=== PATIENT | female | born 1980 ===

== ENCOUNTER 2022-02-20 16:30 | Emergency (ER) | payer SELFPAY ==
[2022-02-20 16:39] VITALS: BP 127/80; PULSE 87; RESP 18; TEMP 36.7; O2SAT 100; BMI 24.2
--- NOTE | 2022-02-20 17:09 | ED.ARRPALP ---
HPI - Arrhythmia/Palpitations General Chief Complaint: Arrhythmia/Palpitations Stated Complaint: SVT Time Seen by Provider: 02/20/22 16:45 Source: patient and EMS Mode of arrival: EMS History of Present Illness HPI narrative: 41F smoker with history of SVT presents by EMS for evaluation of a rapid heart rate, chest pain and shortness of breath. She states she had been in her normal state of health and developed symptoms shortly prior to her calling EMS. On their arrival they found her to be in SVT with a rate of over 200. She had an IV placed and Cardizem was administered and patient had converted to a sinus rhythm in the 80s by her arrival and was completely asymptomatic. She denies any ongoing chest pain or shortness of breath. She denies nausea, vomiting or diarrhea. She denies any dizziness, weakness or lightheadedness. Related Data Allergies Allergy/AdvReac Type Severity Reaction Status Date / Time No Known Drug Allergies Allergy Verified 02/20/22 16:39 Review of Systems Review of Systems Narrative: GENERAL: See HPI HEENT: Denies sinus pain, ear pain, sore throat, difficulty swallowing, dizziness. RESPIRATORY: Denies dyspnea, cough, wheezing, hemoptysis, sputum. CARDIOVASCULAR: See HPI GASTROINTESTINAL: Denies nausea, vomiting, abdominal pain, diarrhea, constipation, melena. : Denies dysuria, frequency, incontinence, hematuria, urinary retention. MUSCULOSKELETAL: denies weakness, joint pain, or bony pain SKIN: Denies rash, skin lesions, or other NEUROLOGIC: Denies weakness, headache, numbness, change in speech, confusion, seizures, incoordination. PSYCHIATRIC: No concerning psychosocial issues. 12 point review of systems is negative except for those stated above Patient History Social History Smoking Status: Current every day smoker Smoking Status: Current every day smoker alcohol intake frequency: holidays/special occasions only Substance Use Type: methamphetamine Exam Narrative Exam Narrative: GENERAL: [41] year old patient appears stated age. Well-developed patient, in mild distress. HEAD: Atraumatic. Normocephalic. EYES: Pupils equal round and reactive. Extraocular motions intact. No scleral icterus. No injection or drainage. ENT: Nose without bleeding, purulent drainage. Throat without erythema, tonsillar hypertrophy or exudate. Airway patent. NECK: Trachea midline. Non tender CARDIOVASCULAR: Regular rate and rhythm without murmurs, gallops, or rubs. RESPIRATORY: Clear to auscultation. Breath sounds equal bilaterally. No wheezes, rales, or rhonchi. GASTROINTESTINAL: Abdomen soft, non-tender, nondistended. EXTREMITIES: No edema or joint tenderness. BACK: Nontender without deformity or crepitance. No flank tenderness. NEURO: AOx3. SKIN: No rash or erythema of visible areas Initial Vital Signs Initial Vital Signs: Vital Signs Temperature 98.0 F 02/20/22 16:39 Pulse Rate 87 02/20/22 16:39 Respiratory Rate 18 02/20/22 16:39 Blood Pressure 127/80 02/20/22 16:39 Pulse Oximetry 100 02/20/22 16:39 Oxygen Delivery Method 02/20/22 16:39 Course Vital Signs Vital signs: Vital Signs - 8 hr 02/20/22 16:39 Temperature 98.0 F Pulse Rate 87 Respiratory Rate 18 Blood Pressure 127/80 Pulse Oximetry 100 Oxygen Delivery Method Room Air Discharge Plan Departure Patient Disposition: Home Clinical Impression: Supraventricular tachycardia Instructions: Paroxysmal Supraventricular Tachycardia Activity Restrictions/Additional Instructions: *You have been diagnosed with [SVT resolved with Cardizem *What to do: *Please continue to take your regular medications as directed. *Please follow up with your primary care provider in 2-3 days, call for an appointment. Let them know you were seen in the Emergency Department and that we ask that you be seen in follow up. We will electronically transmit a record of today's note if your PCP is in our system * as we discussed, it is advisable to pursue evaluation by Cardiology when you get back home * as we discussed, please avoid stimulants such as caffeine, nicotine, alcohol, etc. *Return to Emergency Department if you should have any new, worsening or concerning symptoms, such as [fever greater than 101 F, shaking chills, worsening pain, persistent vomiting or other bothersome symptoms] Visit Report Forms: Patient Portal/API
[2022-02-20 17:26] VITALS: BP 125/82; PULSE 93; RESP 18; O2SAT 95
== END 2022-02-20 17:31 | disposition home or self-care (01) ==
PROVIDERS: Emergency Provider Emergency Medicine
DX: I47.1 Supraventricular tachycardia (principal); R07.9 Chest pain, unspecified
CPT/HCPCS: 93005; 99281; 99283